=== PATIENT | male | born 1985 | race African-American/Black ===

== ENCOUNTER 2019-02-07 05:49 | Emergency (ER) | payer SELFPAY ==
[2019-02-07 05:57] VITALS: BMI 24.6
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
[2019-02-07] MEDS ORDERED: ACETAMINOPHEN 500 MG TABLET (FP) PO ONE (07:30)
[2019-02-07] MEDS ORDERED: ACETAMINOPHEN 325 MG TABLET (FP) ONE (07:33)
[2019-02-07 08:04] LABS: BASO % 0.3 % (0-2.0); EOS % 0.8 % (0-4.5); HEMATOCRIT 42.5 % (35.4-49); MCHC 32.9 g/dl (32.0-35.9); MEAN CELL VOLUME 79.1 fl (80-96); MEAN PLT VOLUME 8.4 fl (7.5-11.1); MONO % 4.7 % (3.8-10.2); NEUT % 86.2 % (42.8-82.8); PLATELET COUNT 231 K/MM3 (134-434); RBC 5.36 M/mm3 (4.00-5.60); WHITE BLOOD COUNT 13.4 K/mm3 (4.0-10.0)
[2019-02-07 08:30] LABS: ALBUMIN 4.4 g/dl (3.4-5.0); BILIRUBIN,TOTAL 0.6 mg/dL (0.2-1); BLOOD UREA NITROGEN 13.2 mg/dL (7-18); CALCIUM 9.5 mg/dL (8.5-10.1); CREATININE 1.2 mg/dL (0.55-1.3); POTASSIUM 5.1 mmol/L (3.5-5.1); TOT PROT 7.7 g/dl (6.4-8.2)
[2019-02-07 09:37] VITALS: BP 124/69; PULSE 61; TEMP 98
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
== END 2019-02-07 09:50 | disposition home or self-care (01) ==
LOC: JER 05:49
DX: R56.9 Unspecified convulsions (principal); M54.5 Low back pain; G89.29 Other chronic pain
CPT/HCPCS: 36415; 70450-TC; 72125-TC; 80053; 85025; 99283-25